=== PATIENT | female | born 1960 | race Caucasian/White ===

== ENCOUNTER 2016-06-29 20:16 | Emergency (ER) | payer MEDICAID ==
[~2016-06-29] VITALS: Ht 157.5 cm; Wt 66.3 kg
[~2016-06-29 20:16] MED LIST: MECL25CH PO
[2016-06-29 20:28] VITALS: BP 161/109; PULSE 91; RESP 18; TEMP 98.1; O2SAT 96
[2016-06-29] MEDS ORDERED: PROM25TA5 PO (22:24)
[2016-06-29] MEDS ORDERED: MECL-62 PO (22:24)
--- NOTE | 2016-06-29 22:26 | PD ---
HPI Chief Complaint: Dizziness Time Seen by Provider: 22:13 Travel History International Travel<30 days: No Contact w/Intl Traveler<30days: No Traveled to known affect area: No History of Present Illness HPI The patient is a 55-year-old female that has a history of vertigo and she complains of vertigo along with nausea and vomiting since this afternoon. She denies any fever. She denies any tinnitus but does have some minimal left ear pain. She denies any hearing loss. She denies any drainage from either ear. She is not on any medications and denies taking any aspirin. She denies any sore throat or fever. The patient's only medication is Cipro. PFSH Past Medical History Cancer: Yes (left breast) Cardiovascular Problems: No Diabetes: Yes (gestational ) Patient Takes Glucophage: No Diminished Hearing: No Endocrine: Yes Genitourinary: No Hepatitis: No Hiatal Hernia: No Immune Disorder: No Musculoskeletal: No Neurologic: No Psychiatric: Yes (anxious regarding the diagnosis) Reproductive: No Respiratory: No Immunizations Current: No Thyroid Disease: No Tetanus Vaccination: Unknown Influenza Vaccination: No Menopausal: Yes : 6 Para: 5 Miscarriage: 1 Ectopic : Yes Tubal Ligation: Yes Past Surgical History Abdominal Surgery: Yes (cholecystectomy) AICD: No Cholecystectomy: Yes Gynecologic Surgery: Yes (tubaligation ectopic pregancy) Hysterectomy: Yes Joint Replacement: No Mastectomy: Yes Pacemaker: No Thoracic Surgery: Yes (lymph node left breast removed) Other Surgery: Yes (LEFT BREAST BIOPSY ) Social History Alcohol Use: Yes ("socially") Tobacco Use: No Substance Use: No Allergies-Medications (Allergen,Severity, Reaction): Coded Allergies: No Known Allergies (Verified , 06/29/16) Reported Meds & Prescriptions Reported Meds & Active Scripts Active No Active Prescriptions or Reported Medications Review of Systems Except as stated in HPI: all other systems reviewed are Neg Physical Exam Narrative GENERAL: The patient is alert, oriented 3 in minimal apparent distress with her vertigo. Her vital signs show blood pressure 161/109 but are otherwise normal. SKIN: Warm and dry. HEAD: Atraumatic. Normocephalic. EYES: Pupils equal and round. No scleral icterus. No injection or drainage. ENT: No nasal bleeding or discharge. Mucous membranes pink and moist. The tympanic membranes and canals appear clear. NECK: Trachea midline. No JVD. CARDIOVASCULAR: Regular rate and rhythm. No murmur appreciated. RESPIRATORY: No accessory muscle use. Clear to auscultation. Breath sounds equal bilaterally. GASTROINTESTINAL: Abdomen soft, non-tender, nondistended. Hepatic and splenic margins not palpable. MUSCULOSKELETAL: No obvious deformities. No clubbing. No cyanosis. No edema. NEUROLOGICAL: Awake and alert. No obvious cranial nerve deficits. Motor grossly within normal limits. Normal speech. PSYCHIATRIC: Appropriate mood and affect; insight and judgment normal. Data Data Last Documented VS Vital Signs Date Time Temp Pulse Resp B/P Pulse Ox O2 Delivery O2 Flow Rate FiO2 06/29/16 20:28 98.1 91 18 161/109 96 MDM Medical Decision Making Medical Screen Exam Complete: Yes Emergency Medical Condition: Yes Medical Record Reviewed: Yes Differential Diagnosis Benign positional vertigo, ear infection, viral syndrome Narrative Course The patient appears to have benign positional vertigo. She will be given Phenergan and meclizine. The meclizine is 25 mg every 6 hours as needed for vertigo. The Phenergan is 25 mg every 8 hours as needed for nausea. Diagnosis Primary Impression: Vertigo, benign positional Med/Other Pt SpecificInfo: Prescription(s) given Scripts Promethazine (Phenergan)25 Mg Tab25 Mg PO Q6H PRN (Nausea/Vomiting) #30 TAB Ref 0 Prov:Ad Patterson MD 06/29/16 Meclizine 25 Mg Tab25 Mg PO Q6HR PRN (VERTIGO) #45 TAB Ref 0 Prov:Ad Patterson MD 06/29/16 Disposition: 01 DISCHARGE HOME Condition: Stable Ad Patterson MD Jun 29, 2016 22:26
[2016-06-29] MEDS ORDERED: MECLIZINE HCL 25 MG TAB PO ONE (22:30)
[2016-06-29] MEDS ORDERED: PROMETHAZINE INJ 25 MG/ML VIAL IM ONE (22:30)
[2016-06-29 22:58] VITALS: BP 156/61
== END 2016-06-29 22:59 | disposition home or self-care (01) ==
LOC: PHED 20:16
DX: H81.10 Benign paroxysmal vertigo, unspecified ear (principal); R11.2 Nausea with vomiting, unspecified
CPT/HCPCS: 96372; 99283; J2550

== ENCOUNTER 2016-07-18 16:14 | Emergency (ER) | payer MEDICAID ==
[~2016-07-18] VITALS: Ht 157.5 cm; Wt 64.0 kg
[~2016-07-18 16:14] MED LIST changes: +MECL-62 PO; -MECL25CH PO; +PROM25TA5 PO
[2016-07-18 16:16] VITALS: BP 169/101; PULSE 101; RESP 18; TEMP 98.2; O2SAT 94
[2016-07-18] MEDS ORDERED: MECL-62 PO (16:59)
[2016-07-18] MEDS ORDERED: PROM25TA5 PO (16:59)
--- NOTE | 2016-07-18 17:00 | PD ---
HPI Chief Complaint: Dizziness Time Seen by Provider: 16:21 Travel History International Travel<30 days: No Contact w/Intl Traveler<30days: No Traveled to known affect area: No History of Present Illness HPI This 55-year-old female complaining of vertigo. She was in the emergency department on June 30 vertigo. She was given prescriptions for Antivert and Phenergan and vertigo resolved in 6 days. It started again yesterday. She has been having some pain in her left ear which she had previously. There is been no fever or chills. She has no numbness or weakness. PFSH Past Medical History Cancer: Yes (left breast) Cardiovascular Problems: No Diabetes: Yes (gestational ) Patient Takes Glucophage: No Diminished Hearing: No Endocrine: Yes Genitourinary: No Hepatitis: No Hiatal Hernia: No Immune Disorder: No Musculoskeletal: No Neurologic: No Psychiatric: Yes (anxious regarding the diagnosis) Reproductive: No Respiratory: No Immunizations Current: No Thyroid Disease: No Tetanus Vaccination: > 5 Years Influenza Vaccination: No Menopausal: Yes : 6 Para: 5 Miscarriage: 1 Ectopic : Yes Tubal Ligation: Yes Past Surgical History Abdominal Surgery: Yes (cholecystectomy) AICD: No Cholecystectomy: Yes Gynecologic Surgery: Yes (tubaligation ectopic pregancy) Hysterectomy: Yes (PARTIAL) Joint Replacement: No Mastectomy: Yes Pacemaker: No Thoracic Surgery: Yes (lymph node left breast removed) Other Surgery: Yes (LEFT BREAST BIOPSY ) Social History Alcohol Use: Yes (RARE) Tobacco Use: No Substance Use: No Allergies-Medications (Allergen,Severity, Reaction): Coded Allergies: No Known Allergies (Verified , 07/18/16) Reported Meds & Prescriptions Reported Meds & Active Scripts Active Phenergan (Promethazine HCl) 25 Mg Tab 25 Mg PO Q6H PRN Meclizine (Meclizine HCl) 25 Mg Tab 25 Mg PO Q6HR PRN Review of Systems General / Constitutional: No: Fever, Chills Eyes: No: Diploplia HENT: Positive: Vertigo, No: Headaches, Earache Cardiovascular: No: Chest Pain or Discomfort, Palpitations Respiratory: No: Cough, Shortness of Breath Gastrointestinal: Positive: Nausea Genitourinary: No: Frequency, Dysuria Musculoskeletal: No: Myalgias, Arthralgias Skin: No Rash Neurologic: Positive: Dizziness, No: Weakness, Syncope Physical Exam Narrative GENERAL: Well-developed female SKIN: Warm and dry. HEAD: Atraumatic. Normocephalic. EYES: Pupils equal and round. No scleral icterus. No injection or drainage. There is uni directional beating nystagmus ENT: No nasal bleeding or discharge. Mucous membranes pink and moist. NECK: Trachea midline. No JVD. CARDIOVASCULAR: Regular rate and rhythm. No murmur appreciated. RESPIRATORY: No accessory muscle use. Clear to auscultation. Breath sounds equal bilaterally. GASTROINTESTINAL: Abdomen soft, non-tender, nondistended. Hepatic and splenic margins not palpable. MUSCULOSKELETAL: No obvious deformities. No clubbing. No cyanosis. No edema. NEUROLOGICAL: Awake and alert. No obvious cranial nerve deficits. Motor grossly within normal limits. Normal speech. There is no skew deviation. Head impulse test does show a corrective saccade PSYCHIATRIC: Appropriate mood and affect; insight and judgment normal. Data Data Last Documented VS Vital Signs Date Time Temp Pulse Resp B/P Pulse Ox O2 Delivery O2 Flow Rate FiO2 07/18/16 16:16 98.2 101 18 169/101 94 MDM Medical Decision Making Medical Screen Exam Complete: Yes Emergency Medical Condition: Yes Medical Record Reviewed: Yes Differential Diagnosis Differential includes vestibular neuronitis,Bppv, central vertigo Narrative Course Patient had previous episode of vertigo identical to this couple of weeks ago. This appears to be peripheral vertigo Diagnosis Primary Impression: Vertigo, benign positional Scripts Promethazine (Phenergan)25 Mg Tab25 Mg PO Q6H PRN (Nausea/Vomiting) #30 TAB Ref 0 Prov:Oleg Flores MD 07/18/16 Meclizine 25 Mg Tab25 Mg PO Q6HR PRN (VERTIGO) #45 TAB Ref 0 Prov:Oleg Flores MD 07/18/16 Oleg Flores MD Jul 18, 2016 16:59
== END 2016-07-18 17:12 | disposition home or self-care (01) ==
LOC: PHED 16:14
DX: H81.10 Benign paroxysmal vertigo, unspecified ear (principal); H92.02 Otalgia, left ear
CPT/HCPCS: 99283

== ENCOUNTER 2017-01-18 20:06 | Emergency (ER) | payer MEDICAID ==
[~2017-01-18] VITALS: Ht 157.5 cm; Wt 62.8 kg
[2017-01-18 20:08] VITALS: BP 184/88; PULSE 84; RESP 18; TEMP 97.8; O2SAT 97
[2017-01-18] MEDS ORDERED: LORazepam 0.5 MG TAB PO ONE (21:00)
[2017-01-18 21:29] LABS: AUTOMATED NEUTROPHIL # 3.7 TH/MM3 (1.8-7.7); BASOPHIL # 0.1 TH/MM3 (0-0.2); BASOPHIL % 1.2 % (0.0-2.0); EOSINOPHIL # 0.2 TH/MM3 (0-0.4); EOSINOPHIL % 2.3 % (0.0-4.0); HEMATOCRIT 40.1 % (35.0-46.0); HEMO FLAGS DIFF FINAL; LYMPH % 46.9 % (9.0-44.0); LYMPHOCYTE # 4.1 TH/MM3 (1.0-4.8); MEAN CELL VOLUME 83.7 FL (80.0-100.0); MEAN CORPUSCULAR HEMOGLOBIN 28.9 PG (27.0-34.0); MEAN CORPUSCULAR HGB CONC 34.5 % (32.0-36.0); MONO % 7.7 % (0.0-8.0); NEUT % 41.9 % (16.0-70.0); PLATELET COUNT 186 TH/MM3 (150-450); RED BLOOD COUNT 4.79 MIL/MM3 (4.00-5.30); WHITE BLOOD COUNT 8.8 TH/MM3 (4.0-11.0)
[2017-01-18 21:47] LABS: CHLORIDE 106 MEQ/L (98-107); POTASSIUM 3.5 MEQ/L (3.5-5.1); SODIUM (NA) 140 MEQ/L (136-145)
[2017-01-18 21:51] LABS: ANION GAP 8 MEQ/L (5-15); BICARBONATE 25.8 MEQ/L (21.0-32.0); BLOOD UREA NITROGEN 16 MG/DL (7-18)
[2017-01-18 21:54] LABS: ALT (GPT) 25 U/L (10-53); AST (GOT) 18 U/L (15-37); GLOMERULAR FILTRATION RATE 137 ML/MIN (>89)
[2017-01-18 21:56] LABS: TOTAL BILIRUBIN ADULT 0.4 MG/DL (0.2-1.0)
[2017-01-18 21:57] LABS: ALKALINE PHOSPHATASE 129 U/L (45-117)
[2017-01-18] MEDS ORDERED: LORA-392 PO (22:26)
--- NOTE | 2017-01-18 22:26 | PD ---
HPI Chief Complaint: Anxiety Time Seen by Provider: 20:55 Travel History International Travel<30 days: No Contact w/Intl Traveler<30days: No Traveled to known affect area: No History of Present Illness HPI Patient is a 56-year-old female comes in complaining of panic attacks. She says she has history of anxiety, but usually she can control it by taking walks and spending time with her family. However she has been very stressed by the news and [place]. She says that when she sees the news she starts feeling like she can't breathe and she is given a pass out. She says currently she's feeling much better since coming here to the emergency department. Her daughter is worried because they'll have to work tomorrow and she'll be alone at the house. She denies any chest pain. She denies any headache or dizziness. PFSH Past Medical History Cancer: Yes (left breast) Cardiovascular Problems: No Diabetes: Yes (gestational ) Patient Takes Glucophage: No Diminished Hearing: No Endocrine: Yes Genitourinary: No Hepatitis: No Hiatal Hernia: No Hypertension: Yes (NOT MEDICATED) Immune Disorder: No Medical other: Yes (VERTIGO) Musculoskeletal: No Neurologic: No Psychiatric: Yes Reproductive: No Respiratory: No Immunizations Current: No Thyroid Disease: No Tetanus Vaccination: > 5 Years Influenza Vaccination: No ?: Not Menopausal: Yes : 6 Para: 5 Miscarriage: 1 Ectopic : Yes Tubal Ligation: Yes Past Surgical History Abdominal Surgery: Yes (cholecystectomy) AICD: No Cholecystectomy: Yes Gynecologic Surgery: Yes (tubaligation ectopic pregancy) Hysterectomy: Yes (PARTIAL) Joint Replacement: No Mastectomy: Yes (LEFT) Pacemaker: No Thoracic Surgery: Yes (lymph node left breast removed) Other Surgery: Yes (LEFT BREAST BIOPSY ) Social History Alcohol Use: Yes (RARE) Tobacco Use: No Substance Use: No Allergies-Medications (Allergen,Severity, Reaction): Coded Allergies: No Known Allergies (Verified , 01/18/17) Reported Meds & Prescriptions Reported Meds & Active Scripts Active Ativan (Lorazepam) 0.5 Mg Tab 0.5 Mg PO Q8H PRN Review of Systems Except as stated in HPI: all other systems reviewed are Neg General / Constitutional: No: Fever, Chills Eyes: No: Blurred Vision HENT: No: Headaches Cardiovascular: No: Chest Pain or Discomfort Respiratory: No: Cough Gastrointestinal: No: Nausea, Vomiting Genitourinary: No: Dysuria Musculoskeletal: No: Edema, Pain Skin: No Rash, No Change in Pigmentation Neurologic: No: Weakness, Dizziness Psychiatric: Positive: Anxiety Physical Exam Narrative GENERAL: Awake and alert, in no acute distress. SKIN: Focused skin assessment warm/dry. HEAD: Atraumatic. Normocephalic. EYES: Pupils equal and round. No scleral icterus. ENT: Mucous membranes pink and moist. NECK: Trachea midline. No JVD. CARDIOVASCULAR: Regular rate and rhythm. No murmur appreciated. RESPIRATORY: No accessory muscle use. Clear to auscultation. Breath sounds equal bilaterally. MUSCULOSKELETAL: No obvious deformities. No clubbing. No cyanosis. No edema. NEUROLOGICAL: Awake and alert. No obvious cranial nerve deficits. Motor grossly within normal limits. Normal speech. PSYCHIATRIC: Appropriate mood and affect; insight and judgment normal. Data Data Last Documented VS Vital Signs Date Time Temp Pulse Resp B/P (MAP) Pulse Ox O2 Delivery O2 Flow Rate FiO2 01/18/17 22:52 78 16 144/73 (96) 97 01/18/17 20:08 97.8 Orders Orders Complete Blood Count With Diff (01/18/17 21:00) Comprehensive Metabolic Panel (01/18/17 21:00) Thyroid Stimulating Hormone (01/18/17 21:00) Electrocardiogram (01/18/17 ) Lorazepam (Ativan) (01/18/17 21:00) Labs Laboratory Tests Test 01/18/17 21:10 White Blood Count 8.8 TH/MM3 Red Blood Count 4.79 MIL/MM3 Hemoglobin 13.8 GM/DL Hematocrit 40.1 % Mean Corpuscular Volume 83.7 FL Mean Corpuscular Hemoglobin 28.9 PG Mean Corpuscular Hemoglobin Concent 34.5 % Red Cell Distribution Width 12.0 % Platelet Count 186 TH/MM3 Mean Platelet Volume 8.9 FL Neutrophils (%) (Auto) 41.9 % Lymphocytes (%) (Auto) 46.9 % Monocytes (%) (Auto) 7.7 % Eosinophils (%) (Auto) 2.3 % Basophils (%) (Auto) 1.2 % Neutrophils # (Auto) 3.7 TH/MM3 Lymphocytes # (Auto) 4.1 TH/MM3 Monocytes # (Auto) 0.7 TH/MM3 Eosinophils # (Auto) 0.2 TH/MM3 Basophils # (Auto) 0.1 TH/MM3 CBC Comment DIFF FINAL Differential Comment Blood Urea Nitrogen 16 MG/DL Creatinine 0.47 MG/DL Random Glucose 98 MG/DL Total Protein 7.3 GM/DL Albumin 3.9 GM/DL Calcium Level 9.4 MG/DL Alkaline Phosphatase 129 U/L Aspartate Amino Transf (AST/SGOT) 18 U/L Alanine Aminotransferase (ALT/SGPT) 25 U/L Total Bilirubin 0.4 MG/DL Sodium Level 140 MEQ/L Potassium Level 3.5 MEQ/L Chloride Level 106 MEQ/L Carbon Dioxide Level 25.8 MEQ/L Anion Gap 8 MEQ/L Estimat Glomerular Filtration Rate 137 ML/MIN Thyroid Stimulating Hormone 3rd Gen 1.120 uIU/ML MDM Medical Decision Making Medical Screen Exam Complete: Yes Emergency Medical Condition: Yes Medical Record Reviewed: Yes Interpretation(s) ECG shows normal sinus rhythm at 73, no ST elevation or depression, normal intervals. Differential Diagnosis Anxiety versus electrolyte abnormality versus hyperthyroidism Narrative Course Patient is a 56-year-old female who comes in complaining of anxiety. Exam shows no acute abnormalities. IV established, labs sent. Labs show no acute abnormalities. Patient given Ativan and feels much better. She'll be discharged with a prescription for a few Ativan. She is advised to supplement with Benadryl as needed. Advised follow-up with her doctor. Advised to return to the ED as needed for any worsening symptoms. Advised of the addictive properties of this medication. Diagnosis Primary Impression: Anxiety Patient Instructions: Anxiety (ED), General Instructions Additional Instructions: Follow-up with your doctor. Take Benadryl as needed for anxiety symptoms. Take the Ativan for severe anxiety. Patient was easily make you drowsy. Be careful as these are very addictive. Return to the ED as needed for any worsening symptoms. Scripts Lorazepam (Ativan) 0.5 Mg Tab 0.5 MG PO Q8H Y for ANXIETY AND/OR AGITATION, #7 TAB 0 Refills Prov: Brissa Claire MD 01/18/17 Disposition: 01 DISCHARGE HOME Condition: Stable Brissa Claire MD Jan 18, 2017 22:26
[2017-01-18 22:52] VITALS: BP 144/73
--- NOTE | 2017-01-19 14:39 | EKG ---
Date Performed: 01/18/2017 Time Performed: 21:16:43 PTAGE: 56 years EKG: Sinus rhythm MODERATE VOLTAGE CRITERIA FOR LVH, CONSIDER NORMAL VARIANT BORDERLINE ECG Compared to prior tracing no significant change PREVIOUS TRACING : 01/03/2014 14.10 DOCTOR: Anastacio Cardozo Interpretating Date/Time 01/19/2017 14:34:42
== END 2017-01-18 22:53 | disposition home or self-care (01) ==
LOC: PHED 20:06
DX: F41.9 Anxiety disorder, unspecified (principal); R94.31 Abnormal electrocardiogram [ECG] [EKG]; I10 Essential (primary) hypertension
CPT/HCPCS: 80053; 84443; 85025; 93005